=== PATIENT | female | born 1985 | race Caucasian/White ===

== ENCOUNTER 2017-08-06 23:55 | Emergency (ER) | payer OTHER ==
[2017-08-06] MEDS ORDERED: DIAZEPAM 5 MG TAB PO ONE (23:58)
[2017-08-06] MEDS ORDERED: DIAZEPAM 5 MG TAB ONE (23:59)
[2017-08-07 00:11] VITALS: RESP 18; TEMP 98; O2SAT 100
[2017-08-07] MEDS ORDERED: HYDROMORPHONE HCL 2 MG/ML SOL IM ONE (00:58)
[2017-08-07] MEDS ORDERED: HYDROMORPHONE HCL 2 MG/ML SOL ONE (00:59)
[2017-08-07 01:53] VITALS: BP 122/83; PULSE 68
== END 2017-08-07 01:47 | disposition home or self-care (01) | DRG 552 ==
LOC: ED 23:55
DX: M54.32 Sciatica, left side (principal)
CPT/HCPCS: 96372; 99283; J1170